=== PATIENT | male | born 1985 | race Hispanic/Latino ===

== ENCOUNTER 2019-01-02 11:32 | Emergency (ER) | payer BC ==
[~2019-01-02] VITALS: Ht 177.8 cm; Wt 104.3 kg
--- OUTSIDE RECORDS SUMMARY | 2019-01-02 11:35 | XMS REPORT | Encounter Summary ---
Author Organization Unknown Address [address] [place] [address] Phone [phone] Reason for Visit Medical Complaint Instructions 1. Influenza-like symptoms rapid flu (A+B) 2. Headache headache: care instructions 3. Elevated blood-pressure reading without diagnosis of hypertension elevated blood pressure: care instructions low sodium diet (2,000 milligram): care instructions patient follow up phone call - call to see if he follow up with appointment 08/03/17. Discussion Note F/U with your PCP within 3-5 days if s/s continue or worsen. Handout that was given and reviewed and pt verbalized understanding. For worsenening symptoms or shortness/ chest pain develop F/U with ER MIGUEL. Plan of Care Patient Instructions Take charge of your health handout given and discussed. SE of medictions discussed and pt verbalized understanding. Reminders Provider Appointments None recorded. Lab Rapid Flu (A+B) 07/25/2017 [facility] Referral None recorded. Procedures None recorded. Surgeries None recorded. Imaging None recorded. Medications Name Start Date albuterol sulfate 2.5 mg/3 mL (0.083 %) solution for nebulization Inhale 3 mL by nebulization route. azithromycin 250 mg tablet TAKE 2 TABLETS BY MOUTH ON DAY 1, THEN 1 TABLET DAILY ON DAYS 2 TO 5. dexamethasone 4 mg/mL injection solution Take 1 mL by injection route. prednisone 20 mg tablet TAKE ONE (1) TABLET(S) BY MOUTH THREE TIMES A DAY AFTER MEALS FOR 4 DAYS. ProAir HFA 90 mcg/actuation aerosol inhaler INHALE TWO (2) PUFF(S) BY MOUTH EVERY FOUR HOURS NEEDED. Medications Administered None recorded. Vitals Height Weight BMI Blood Pressure 5 ft 10 in 225 lbs 32.3 kg/m2 (1) 150/98 mm[Hg] (2) 152/98 mm[Hg] Lab Results Date Name Specimen Result Interpretation Description Value Range Status Address Rapid Flu (A+B) Influenza a negative [facility]: [address] [place] [address] Influenza B negative [facility]: [facility] Rapid Flu (A+B) Influenza a negative [facility]: [facility] Influenza B negative [facility]: [facility] Allergies Code Code System Name Reaction Severity Status Onset NKDA Problems None recorded. Procedures None recorded. Vaccine List None recorded. Social History Smoking Status Never Smoker Past Encounters 07/25/2017 Influenza-like Symptoms; Headache; Elevated Blood-pressure Reading without Diagnosis of Hypertension Nayeli Dia, WORKDAY MANAGER: [address] [place] [address], Ph. 07/07/2017 Expiratory Wheezing; Acute Sinusitis; Acute Upper Respiratory Infection; Cough WILMER MejiaP: [address] [place] [address], Ph. History of Present Illness Vjsphft-Sqtok-Aoq Reported By: Patient HPI: Quality: cannot identify. Duration: intermittent. Onset/Timing: first recorded 2 days ago. Context: no ill contacts, no tick/insect bites, no recent travel, no new medications. Associated Symptoms: no fever/chills, no rash, no lethargy, headache, muscle aches, tired (fatigue). Modifying Factors OTC medication Review of Systems Basic Reported By: Patient Yhea-Ymvw-Dibmq-Throat: Ears: no ear complaints Neurologic: Neurologic: dizziness Physical Exam Adult Basic, Adult Female Complete, Adult Male Complete Reported By: Patient Constitutional: General Appearance: obese. Level of Distress: NAD. Ambulation: ambulating normally Psychiatric: Mental Status: active and alert. Orientation: to time, to place, to person Eyes: Lids and Conjunctivae: non-injected, no discharge, no pallor. Pupils: PERRLA. Sclerae: non-icteric Chn-Htdm-Ukvvl-Throat: Ears: no lesions on external ear, no outer ear tenderness, EACs clear, TMs clear. Hearing: no hearing loss. Nose: no lesions on external nose, nares patent, no septal deviation, nasal passages clear, no sinus tenderness, no nasal discharge. Lips, Teeth, and Gums: no mouth or lip ulcers. Oropharynx: moist mucous membranes, no erythema, no exudates, tonsils not enlarged Neck: Neck: supple; c/o neck tension on palpation. Lymph Nodes: no cervical LAD Lungs: Respiratory effort: no dyspnea, no tachypnea, no use of accessory muscles, no intercostal retractions. Auscultation: breath sounds normal Cardiovascular: Heart Auscultation: RRR, no murmurs Neurologic: Gait and Station: normal gait, normal station
--- OUTSIDE RECORDS SUMMARY | 2019-01-02 11:35 | XMS REPORT | Encounter Summary ---
Author Organization Unknown Address [address] [place] [address] Phone [phone] Reason for Visit Medical Complaint Instructions 1. Influenza-like symptoms rapid flu (A+B) 2. Headache headache: care instructions 3. Elevated blood-pressure reading without diagnosis of hypertension elevated blood pressure: care instructions low sodium diet (2,000 milligram): care instructions patient follow up phone call Discussion Note F/U with your PCP within [...] (A+B) Influenza a negative [facility]: [address] [place] [address] Influenza B negative [facility]: [address] [place] [address] Rapid Flu (A+B) Influenza a negative [facility]: [facility] Influenza B negative [facility]: [facility] Allergies Code Code System Name Reaction Severity Status Onset NKDA Problems None recorded. Procedures None recorded. Vaccine List None recorded. Social History Smoking Status Never Smoker Past Encounters 07/25/2017 Influenza-like Symptoms; Headache; Elevated Blood-pressure Reading without Diagnosis of Hypertension Nayeli Dia, PRICING LEAD: [address] [place] [address], Ph. 07/07/2017 Expiratory Wheezing; Acute Sinusitis; Acute Upper Respiratory Infection; Cough WILMER MejiaP: [address] [place] [address], Ph. History of Present Illness Lycixtj-Ozeao-Oph Reported By: Patient HPI: Quality: cannot identify. Duration: intermittent. Onset/Timing: first recorded 2 days ago. Context: no ill contacts, no tick/insect bites, no recent travel, no new medications. Associated Symptoms: no fever/chills, no rash, no lethargy, headache, muscle aches, tired (fatigue). Modifying Factors OTC medication Review of Systems Basic Reported By: Patient Hgvt-Sfzv-Aekdm-Throat: Ears: no ear complaints Neurologic: Neurologic: dizziness Physical Exam Adult Basic, Adult Female Complete, Adult Male Complete Reported By: Patient Constitutional: General Appearance: obese. Level of Distress: NAD. Ambulation: ambulating normally Psychiatric: Mental Status: active and alert. Orientation: to time, to place, to person Eyes: Lids and Conjunctivae: non-injected, no discharge, no pallor. Pupils: PERRLA. Sclerae: non-icteric Pgl-Rmdq-Qauhw-Throat: Ears: no lesions on external ear, no [...]
--- OUTSIDE RECORDS SUMMARY | 2019-01-02 11:35 | XMS REPORT | Continuity of Care Document ---
Author Author [facility] Interface Address Unknown Phone Unavailable Problems Problem Status Onset Date Classification Date Reported Comments Source Influenza-like symptoms 07/25/2017 Diagnosis 08/02/2017 [facility] Headache 07/25/2017 Diagnosis 08/02/2017 [facility] Elevated blood-pressure reading without diagnosis of hypertension 07/25/2017 Diagnosis 08/02/2017 [facility] Expiratory wheezing 07/07/2017 Diagnosis 08/02/2017 [facility] Acute sinusitis 07/07/2017 Diagnosis 08/02/2017 [facility] Acute upper respiratory infection 07/07/2017 Diagnosis 08/02/2017 [facility] Cough 07/07/2017 Diagnosis 08/02/2017 [facility] Medications Medication Details Route Status Patient Instructions Ordering Provider Order Date Source Albuterol 0.83 MG/ML Inhalant Solution albuterol sulfate 2.5 mg/3 mL (0.083 %) solution for nebulization Inhale 3 mL by nebulization route. Active [facility] Azithromycin 250 MG Oral Tablet azithromycin 250 mg tablet TAKE 2 TABLETS BY MOUTH ON DAY 1, THEN 1 TABLET DAILY ON DAYS 2 TO 5. Active [facility] Dexamethasone phosphate 4 MG/ML Injectable Solution dexamethasone 4 mg/mL injection solution Take 1 mL by injection route. Active [facility] Prednisone 20 MG Oral Tablet prednisone 20 mg tablet TAKE ONE (1) TABLET(S) BY MOUTH THREE TIMES A DAY AFTER MEALS FOR 4 DAYS. Active [facility] 200 ACTUAT Albuterol 0.09 MG/ACTUAT Metered Dose Inhaler [ProAir] ProAir HFA 90 mcg/actuation aerosol inhaler INHALE TWO (2) PUFF(S) BY MOUTH EVERY FOUR HOURS NEEDED. Active [facility] Allergies, Adverse Reactions, Alerts Substance Category Reaction Severity Reaction type Status Date Reported Comments Source Immunizations Immunization Date Given Site Status Last Updated Comments Source Results Order Name Results Value Reference Range Date Interpretation Comments Source Influenza A negative 07/25/2017 [facility] Influenza B negative 07/25/2017 [facility] Influenza A negative 07/25/2017 [facility] Influenza B negative 07/25/2017 [facility] Influenza A negative 07/07/2017 [facility] Influenza B negative 07/07/2017 [facility] Vital Signs Vital Sign Value Date Comments Source Diastolic (mm Hg) 98 07/25/2017 [facility] Height 70 07/25/2017 [facility] Systolic (mm Hg) 152 07/25/2017 [facility] Weight 225 07/25/2017 [facility] Diastolic (mm Hg) 86 07/07/2017 [facility] Height 70 07/07/2017 [facility] Systolic (mm Hg) 132 07/07/2017 [facility] Weight 223 07/07/2017 [facility] Encounters Location Location Details Encounter Type Encounter Number Reason For Visit Attending Provider ADM Date DC Date Status Source [place] - [facility] - [id number] Harmony Alejandro, FRUIT CULLER: [address] [place] [address], Ph. [id number] Harmony Alejandro 07/07/2017 [facility] [place] [facility] - [id number] WILMER MejiaP: [address] [place] [address], Ph. [id number] Harmony Alejandro 07/07/2017 [facility] [place] [facility] - [id number] WILMER MejiaP: [address] [place] [address], Ph. [id number] Harmony Alejandro 07/07/2017 [facility] [place] - [facility] - [id number] Nayeli Dia, CORRESPONDENCE SECTION SUPERVISOR: [address] [place] [address], Ph. [id number] Nayeli Dia 07/25/2017 [facility] [place] - [facility] - [id number] Nayeli Dia, CORRESPONDENCE SECTION SUPERVISOR: [address] [facility] , [place] [address], Ph. [id number] Nayeli Dia 07/25/2017 [facility] Procedures Procedure Code Date Perfomer Comments Source
--- OUTSIDE RECORDS SUMMARY | 2019-01-02 11:35 | XMS REPORT | Encounter Summary ---
Author Organization Unknown Address [address] [place] [address] Phone [phone] Reason for Visit Medical Complaint Instructions 1. Expiratory wheezing prednisone 20 mg tablet ProAir HFA 90 mcg/actuation aerosol inhaler dexamethasone 4 mg/mL injection solution albuterol sulfate 2.5 mg/3 mL (0.083 %) solution for nebulization 2. Acute sinusitis Zithromax Z-Que 250 mg tablet 3. Acute upper respiratory infection 4. Cough rapid flu (A+B) Discussion Note: None recorded. Patient educational handouts: No information available. Plan of Care Patient Instructions May take regular mucinex for chest congestion. If wheezing worsening overnight, seek ER. Reminders Provider Appointments None recorded. Lab Rapid Flu (A+B) 07/07/2017 [facility] Referral None recorded. Procedures None recorded. Surgeries None recorded. Imaging None recorded. Medications Name Start Date albuterol sulfate 2.5 mg/3 mL (0.083 %) solution for nebulization Inhale 3 mL by nebulization route. dexamethasone 4 mg/mL injection solution Take 1 mL by injection route. prednisone 20 mg tablet Take 1 tablet 3 times a day by oral route after meals for 4 days. ProAir HFA 90 mcg/actuation aerosol inhaler Inhale 2 puffs every 4 hours by inhalation route as needed. Zithromax Z-Que 250 mg tablet TAKE 2 TABLETS (500 MG) BY ORAL ROUTE ONCE DAILY FOR 1 DAY THEN 1 TABLET (250 MG) BY ORAL ROUTE ONCE DAILY FOR 4 DAYS Medications Administered Name Date dexamethasone 4 mg/mL injection solution Take 1 mL by injection route. [id number]:[id number] albuterol sulfate 2.5 mg/3 mL (0.083 %) solution for nebulization Inhale 3 mL by nebulization route. [id number]:50:55 Vitals Height Weight BMI Blood Pressure 5 ft 10 in 223 lbs 32 kg/m2 132/86 mm[Hg] Lab Results Date Name Specimen Result Interpretation Description Value Range Status Address Rapid Flu (A+B) Influenza a negative [facility]: [facility] Influenza B negative [facility]: [facility] Allergies Code Code System Name Reaction Severity Status Onset NKDA Problems None recorded. Procedures None recorded. Vaccine List None recorded. Social History Smoking Status Never Smoker Past Encounters 07/07/2017 Expiratory Wheezing; Acute Sinusitis; Acute Upper Respiratory Infection; Cough Harmony Alejandro, [facility]: [address] [facility] , [place] [address], Ph. History of Present Illness Cough Reported By: Patient HPI: Location: nasal/sinus. Quality: productive cough, colored phlegm, congested, wheezy cough. Duration: 5 days. Severity: moderate. Onset/Timing: sudden. Context: no foreign travel, non-smoker, sick contact, allergies, asthma. Modifying factors: OTC medication. Associated Symptoms: no shortness of breath, no wheezing, no sweats, no significant weight gain, no significant weight loss, no morning cough, no sore throat, no vomiting, no diarrhea, no rash, no nausea, no muscle aches, no headache, green sputum, fever/chills Review of Systems Basic Reported By: Patient Constitutional: Constitutional: fever Eyes: Eyes: no eye complaints Wcdy-Xmov-Cayar-Throat: Ears: no ear complaints. Nose: nose/sinus problems. Mouth/Throat: no sore throat, no bleeding gums, no mouth complaints, no teeth problems Cardiovascular: Cardiovascular: no chest pain, no shortness of breath, no known heart murmur Respiratory: Respiratory: no shortness of breath, cough, wheezing Gastrointestinal: Gastrointestinal: no abdominal pain, no vomiting / diarrhea Genitourinary: Genitourinary: no urinary complaints, no discharge Musculoskeletal: Musculoskeletal: no muscle aches, no muscle weakness, no arthralgias/joint pain, no back pain Skin: Skin: no abnormal / changing mole, no jaundice, no rashes Neurologic: Neurologic: no loss of consciousness, no weakness, no numbness, no seizures, no dizziness, no headaches Physical Exam Adult Basic, 14-21 Yr Male, Adult Male Complete Reported By: Patient Constitutional: General Appearance: well-nourished, well-developed. Level of Distress: NAD Psychiatric: Mental Status: active and alert, normal affect, normal mood. Orientation: to time, to place, to person Eyes: Lids and Conjunctivae: non-injected, no discharge. Pupils: equal size, round, reactive to light. Sclerae: non-icteric The-Upog-Mixlj-Throat: Ears: no lesions on external ear, no outer ear tenderness, EACs clear, TMs clear, middle ear fluid. Nose: no lesions on external nose, nares patent, no septal deviation, nasal passages clear, sinus tenderness, nasal discharge--purulent, post nasal drip. Lips, Teeth, and Gums: no mouth or lip ulcers, no bleeding gums, normal dentition. Oropharynx: moist mucous membranes, no erythema, no exudates, tonsils not enlarged Neck: Lymph Nodes: cervical lympadenopathy. Thyroid: no enlargement, non-tender, no nodules, no asymmetry Lungs: Respiratory effort: no tachypnea. Auscultation: no rales/crackles, no retractions, expiratory wheezing, rhonchi Cardiovascular: Heart Auscultation: no murmurs, no gallops, no rub. Apical impulse: not displaced. Rate and rhythm: regular
--- OUTSIDE RECORDS SUMMARY | 2019-01-02 11:35 | XMS REPORT | Clinical Summary ---
Author Author [facility] Address Unknown Phone Unavailable Care Team Providers Care Chief Librarian Branch Name Role Phone Asked, No Pcp PCP Unavailable Allergies No Known Allergies Medications No known medications Active Problems Not on file Encounters Care Team Description Date Type Specialty Miguel Angel Nichole MD 10/23/2018 Occupational Occupational Health Health after 01/01/2018 Social History Date Tobacco Use Types Packs/Day Years Used Never Smoker Smokeless Tobacco: Never Used Sex Assigned at Date Recorded Not on file Industry Job Start Date Occupation Not on file Not on file Not on file Travel End Travel History Travel Start No recent travel history available. Last Filed Vital Signs Time Taken Vital Sign Reading 10/23/2018 9:38 AM CDT Blood Pressure 155/82 10/23/2018 9:38 AM CDT Pulse 89 10/23/2018 9:38 AM CDT Temperature 36.2 C (97.1 F) 10/23/2018 9:38 AM CDT Respiratory Rate 18 - Oxygen Saturation - - Inhaled Oxygen - Concentration 10/23/2018 9:38 AM CDT Weight 109 kg (241 lb) 10/23/2018 9:38 AM CDT Height 180.3 cm (5' 11") 10/23/2018 9:38 AM CDT Body Mass Index 33.61 Plan of Treatment Health Maintenance Due Date Last Done Comments INFLUENZA VACCINE 02/25/2019 Results Not on fileafter 01/01/2018 Advance Directives Patient has advance care planning documents on file. For more information, ijeoma berman contact: Blane Julian [address] [place] [address]
[2019-01-02 12:27] LABS: BASOPHILS # (AUTO) 0.1 (0.0-0.1); BASOPHILS % 0.6 % (0.0-1.0); EOSINOPHILS # (AUTO) 0.3 (0.0-0.4); EOSINOPHILS % 2.3 % (0.0-6.0); HEMATOCRIT 45.5 % (38.2-49.6); HEMOGLOBIN 16.2 g/dL (14.0-18.0); LYMPHOCYTES # (AUTO) 2.7 (1.0-3.2); MEAN CORPUSCULAR HEMOGLOBIN 31.9 pg (28-32); MEAN CORPUSCULAR HGB CONC 35.6 g/dL (31-35); MEAN CORPUSCULAR VOLUME 89.6 fL (81-99); MONOCYTES # (AUTO) 1.1 (0.2-0.8); MONOCYTES % 9.2 % (4.4-11.3); NEUTROPHILS # (AUTO) 7.9 (2.1-6.9); NEUTROPHILS % 65.6 % (38.7-80.0); PLATELET COUNT 269 x10e3/uL (140-360); RED BLOOD COUNT 5.08 x10e6/uL (4.3-5.7); RED CELL DISTRIBUTION WIDTH 11.6 % (11.7-14.4)
[2019-01-02 12:41] LABS: ANION GAP 11.8 mmol/L (8-16); BLOOD UREA NITROGEN 14 mg/dL (7-26); BUN/CREATININE RATIO 15 (6-25); CALCIUM 9.6 mg/dL (8.4-10.2); CARBON DIOXIDE 27 mmol/L (22-29); CHLORIDE 101 mmol/L (98-107); CREATININE, SERUM 0.91 mg/dL (0.72-1.25); EST GLOMERULAR FILTRATION RATE > 60 ML/MIN (60-); GLUCOSE 101 mg/dL (74-118); POTASSIUM 3.8 mmol/L (3.5-5.1); SODIUM 136 mmol/L (136-145)
[2019-01-02] MEDS ORDERED: IOPAMIDOL 370 MG/ML 200 ML INFUS..BTL INJ ONE (13:49)
[2019-01-02] MEDS ORDERED: SODIUM CHLORIDE 0.9% 50ML 50 ML ONE (13:49)
--- NOTE | 2019-01-02 14:00 | Diagnostic Imaging Report ---
Examination: CT Face with Contrast History:Pain of right ear for 3 days with drainage. Comparison studies: None Technique: Axial images were obtained through the maxillofacial region. Coronal and sagittal reconstructions obtained from the axial data. Dose modulation, iterative reconstruction, and/or weight based adjustment of the mA/kV was utilized to reduce the radiation dose to as low as reasonably achievable. Intravenous contrast: 100mL Isovue 370 Findings: Soft tissues: Homogenously enhancing soft tissue swelling/ edema in the postauricular region with extension to the right external auditory canal. No middle ear cavity involvement. Bones: No fractures or bony abnormalities. Orbits: Globes: Intact Extra or intraconal abnormalities: None. Paranasal sinuses: Clear. IMPRESSION: Right external auditory canal and postauricular soft tissue prominence. No imaging findings to suggest abscess. Recommend ENT consult as this could represent inflammatory (cholesteatoma), infectious (phlegmon) or malignant process. Signed by: Dr. Elena Ricketts M.D. on 01/02/2019 1:57 PM
[2019-01-02 15:04] VITALS: BP 149/87
== END 2019-01-02 15:16 | disposition home or self-care (01) ==
LOC: ER 11:32
DX: H60.311 Diffuse otitis externa, right ear (principal); H60.11 Cellulitis of right external ear
CPT/HCPCS: 36415; 70487; 80048; 85025; 99284; Q9967